=== PATIENT | male | born 1955 | race Caucasian/White ===

== ENCOUNTER 2025-04-19 14:29 | Emergency (ER) | payer MEDICARE, OTHER ==
[~2025-04-19] VITALS: Ht 177.8 cm; Wt 69.1 kg
[~2025-04-19 14:29] MED LIST: AUG875T PO; HYDR-4902 PO; ZOFR4T PO
--- NOTE | 2025-04-19 15:12 | ED.PDOC ---
Musculoskeletal HPI Comments This is a 69 year old male presenting to the ED with chief complaint of left shoulder pain. Patient reports that his left shoulder suddenly started to experience pain with movement around 2 days ago. Patient relays that he is now unable to lift up his arm past his shoulder height due to the pain. Patient states he has history of torn rotator cuffs to bilateral shoulders, but had a previous surgery to fix the left one. Patient notes he has taken Flexeril and Ibuprofen with no relief in pain noted. Denies fevers chills night sweats nausea vomiting redness around the shoulder Numbness/tingling down the arm Denies changes, shortness of breath Chief Complaint: Upper Extremity Time Seen by MD: 15:09 Reviewed Notes: Nurses Notes, Medications, Allergies Allergies: Coded Allergies: Acetaminophen (Verified Allergy, Unknown, 11/28/24) Hydrocodone (Verified Allergy, Unknown, 11/28/24) Home Meds Active Scripts Ondansetron Odt 4MG Tab (ZOFRAN PO) 4 Mg Tb, 4 MG PO TIDP PRN for 5 Days, #15 TAB 0 Refills ODT TAB-DISSOLVE IN MOUTH, THEN SWALLOW Prov:TREVON BULLOCK MD 11/30/24 Hydrocodone-Acetaminophen (Hydrocodone Bitartrate/AC 5-325 mg) 1 Tab Tab, 1 TAB PO TIDP PRN for 5 Days, #15 TAB 0 Refills Prov:TREVON BULLOCK MD 11/30/24 Amoxicillin & Pot Clavulanate (AUGMENTIN TABLET) 875 Mg Tb, 875 MG PO BID for 5 Days, #10 TAB 0 Refills Prov:TREVON BULLOCK MD 11/30/24 Information Source: Patient Mode of Arrival: Ambulatory Location: Left Extremity Location: Shoulder Timing: Days Prehospital treatment: None Severity: Moderate Able to Move Extremity: Yes Pain: Moderate Mechanism: Spontaneous Circumstances: Spontaneous Onset of Symptoms: Spontaneous Symptoms: Pain DVT Risk Factors: NONE Associated signs and symptoms: Shoulder pain Past Medical History PAST MEDICAL HISTORY: Denies Surgical History: Hernia Repair Surgical History (Other): Lt rotator Family History Family History: Reviewed,noncontributory to illness Social History Smoker: Non-Smoker Alcohol: Denies ETOH Use Drugs: Denies Drug Use Lives In: Home Constitutional: denies: chills, diaphoresis, fatigue, fever, malaise, sweats, weakness, others EENTM: denies: blurred vision, double vision, ear bleeding, ear discharge, ear drainage, ear pain, ear ringing, eye pain, eye redness, hearing loss, mouth pain, mouth swelling, nasal discharge, nose bleeding, nose congestion, nose pain, photophobia, tearing, throat pain, throat swelling, voice changes, others Respiratory: denies: cough, hemoptysis, orthopnea, SOB at rest, shortness of breath, SOB with excertion, stridor, wheezing, others Cardiovascular: denies: chest pain, dizzy spells, diaphoresis, Dyspnea on exertion, edema, irregular heart beat, left arm pain, lightheadedness, palpitations, PND, syncope, others Gastrointestinal: denies: abdomen distended, abdominal pain, blood streaked bowels, constipated, diarrhea, dysphagia, difficulty swallowing, hematemesis, melena, nausea, poor appetite, poor fluid intake, rectal bleeding, rectal pain, vomiting, others Genitourinary: denies: burning, dysuria, flank pain, frequency, hematuria, incontinence, penile discharge, penile sore, pain, testicle pain, testicle swelling, urgency, others Neurological: denies: dizziness, fainting, headache, left sided numbness, left sided weakness, numbness, paresthesia, pre-existing deficit, right sided numbness, right sided weakness, seizure, speech problems, tingling, tremors, weakness, others Musculoskeletal: reports: others (Left shoulder pain); denies: back pain, gout, joint pain, joint swelling, muscle pain, muscle stiffness, neck pain Integumetry: denies: bruises, change in color, change in hair/nails, dryness, laceration, lesions, lumps, rash, wounds, others Allergic/Immunocompromised: denies: Difficulty Healing, Frequent Infections, Hives, Itching, others Hematologic/Lymphatic: denies: anemia, blood clots, easy bleeding, easy bruising, swollen glands, others Endocrine: denies: excessive hunger, excessive sweating, excessive thirst, excessive urination, flushing, intolerance to cold, intolerance to heat, unexplained weight gain, unexplained weight loss, others Psychiatric: denies: anxiety, bipolar disorder, depression, hopeless, panic disorder, schizophrenia, sleepless, suicidal, others All Other Systems: Reviewed and Negative Physical Exam General Appearance: No Apparent Distress, Normal HEENT: Normal ENT Inspection, Pharynx Normal, TMs Normal Neck: Full Range of Motion, Non-Tender, Normal, Normal Inspection Respiratory: Chest Non-Tender, Lungs Clear, No Accessory Muscle Use, No Respiratory Distress, Normal Breath Sounds Cardiovascular: No Edema, No JVD, No Murmur, No Gallop, Normal Peripheral Pulses, Regular Rate/Rhythm Breast Exam: Deferred Gastrointestinal: No Organomegaly, Non Tender, No Pulsatile Mass, Normal Bowel Sounds, Soft Genitalia: Deferred Pelvic: Deferred Rectal: Deferred Extremities: No calf tenderness, Normal capillary refill, Normal inspection, Normal range of motion, Non-tender, No pedal edema Musculoskeletal : Apperance: Normal Neurologic: Alert, processor inspector II-XII nml as Tested, No Motor Deficits, Normal Affect, Normal Mood, No Sensory Deficits Cerebellar Function: Normal Reflexes: Normal Skin: Dry, Normal Color, Warm Lymphatic: No Adenopathy Was a procedure done? Was a procedure done?: No Differential Diagnosis EXT Differential Diagnosis: Fracture, Sprain, Dislocation, Contusion, Strain X-Ray, Labs, Meds, VS Vital Signs Date Time Temp Pulse Resp B/P (MAP) Pulse Ox O2 Delivery O2 Flow Rate FiO2 04/19/25 16:03 78 17 97 Room Air 04/19/25 16:03 98.2 87 18 149/87 (107) 97 98.2 04/19/25 14:30 97.7 88 15 153/85 97 97.7 Current Medications Medications (Trade) Dose Ordered Sig/Lisette Route Start Time Stop Time Status Last Admin Methylprednisolone Sodium Succinate (Solu Medrol) 125 mg ONCE ONCE IM 04/19/25 15:45 04/19/25 15:46 DC 04/19/25 15:46 [place] [id number] Ph: [phone] DIAGNOSTIC IMAGING Diagnostic Imaging Report : [id number] Signed PATIENT: REMEDIOS DING ACCT: [id number] UNIT: [id number] : 1955 LOC: ER ROOM / BED: / AGE / SEX: 69 / M ADM STATUS: REG ER SERVICE [id number] ORDERING PHYSICIAN: INEZ PENA NP PROCEDURE(s): LSHD2 - L SHOULDER 2+ VIEW XRAY REASON: R/o fracture and Osteoarthritis ORDER NUMBER(s): [id number], ACCESSION NUMBER(s): [id number] CLINICAL INDICATION: R/o fracture and Osteoarthritis TECHNIQUE: 3 views XY L SHOULDER 2+ VIEW XRAY Comparison: None FINDINGS/IMPRESSION: : No fracture Normal alignment [id number] calcific tendinitis noted adjacent to the humeral head. Calcium deposits only seen on the AP view. IMPRESSION: 1. No fracture No significant degenerative osteoarthritis identified Calcific tendinitis. ATED BY: DOLORES RODRIGUEZ MD DICTATED DATE/TIME: 04/19/251533 SIGNED BY: DOLORES RODRIGUEZ MD SIGNED DATE/TIME: 04/19/251533 CC: X-Ray, Labs, Meds, VS Comment This is a 69 year old male presenting to the ED with chief complaint of left shoulder pain Patient arrives alert and oriented, ABC's intact, afebrile, vital signs stable, saturating well in room air Diagnostic imaging ordered by me and results interpreted by radiology : Lt shoulder XR X-rays ordered, read by radiologist and reviewed by me. Imaging shows no acute findings There are no signs of arterial or nerve damage Recommended heat therapy Reviewed RICE management Recommended range of motion exercises and limit heavy activity for 1 week If no improvement advised patient to return to the emergency department for follow-up. On reevaluation, patient had symptomatic improvement. Patient is stable for discharge at this time. External notes reviewed. Test results and diagnostic imaging interpreted. All diagnostic findings, discharge care, education and instructions provided Follow-up with PCP in 2 to 3 days Patient verbalized understanding and agreed to treatment plan Vital signs stable, afebrile, no acute distress noted Patient ambulatory with strong steady gait Advised to return precautions for any new or worsening symptoms, return to ER immediately for re-evaluation Patient is aware that the purpose of this visit was for an acute medical emergency requiring emergent stabilization. Chronic conditions, including malignancies have not been ruled out. Patient is instructed to follow up with PCP as directed and discharge instructions for continued care and workup. If unable to arrange follow-up, patient is to return to the emergency department for reassessment. Patient (parent or legal guardian if applicable) was given verbal and written discharge instructions and acknowledges understanding. Additional MDM Review of External, Non-ED records: External records reviewed. Discussion with independent historian (EMS, family) history obtained from the patient/parents (if applicable) at bedside Chronic conditions affecting care: None Social determinants of health affecting care: None Patient was given: Solu-Medrol 125mg IM. Tolerated medications with no adverse reaction. Consideration of admission (observation or admission): I considered escalation of care to admission for this patient, however given the reassuring workup, the patient is safe for outpatient management. Discussion with the Radiology: No Time of 1ST Reevaluation: 15:15 Reevaluation 1ST: Improved Patient Education/Counseling: Diagnosis, Treatment Family Education/Counseling: No Family Present Departure 1 Departure Time of Disposition: 15:42 Impression: Primary Impression: Calcific tendinitis of shoulder Qualified Codes: M75.32 - Calcific tendinitis of left shoulder Disposition: 01 HOME / SELF CARE / HOMELESS Condition: Fair Discharged With: Self Critical Care Note Critical Care Time?: No Stability Stability form required: No Heart Score Heart Score: Heart Score Response (Comments) Value History N/A 0 EKG N/A 0 Age N/A 0 Risk Factors N/A 0 Troponin N/A 0 Total 0 I personally scribed for INEZ PENA TAILING HAND ([email or web address]) on 04/19/25 at 15:12. Electronically submitted by Dale Chahal ([email or web address]). I personally scribed for INEZ PENA TAILING HAND ([email or web address]) on 04/19/25 at 15:51. Electronically submitted by Dale Chahal ([email or web address]). INEZ PENA TAILING HAND Apr 19, 2025 15:12
--- NOTE | 2025-04-19 15:36 | DVH ---
CLINICAL INDICATION: R/o fracture and Osteoarthritis TECHNIQUE: 3 views XY L SHOULDER 2+ VIEW XRAY Comparison: None FINDINGS/IMPRESSION: : No fracture Normal alignment [id number] calcific tendinitis noted adjacent to the humeral head. Calcium deposits only seen o n the AP view. IMPRESSION: 1. No fracture No significant degenerative osteoarthritis identified Calcific tendinitis.
[2025-04-19] MEDS: methylPREDNISolone SOD SUCC 125 MG/2 ML VL IM ONE (15:46)
[2025-04-19 16:03] VITALS: BP 149/87; PULSE 78; RESP 17; TEMP 98.2; O2SAT 97
== END 2025-04-19 16:01 | disposition home or self-care (01) ==
LOC: ER 14:29
DX: M75.32 Calcific tendinitis of left shoulder (principal); Z88.5 Allergy status to narcotic agent; Z98.890 Other specified postprocedural states
CPT/HCPCS: 73030; 96372; 99283; J2919

== ENCOUNTER 2025-05-04 09:13 | Outpatient (CLI) | payer OTHER, MEDICARE ==
[2025-05-04 10:11] LABS: Hematocrit 46.6 % (41.0-53.0); Hemoglobin 16.7 g/dL (13.5-17.5); Mean Corpuscular Hemoglobin 29.5 pg (28.0-32.0); Mean Corpuscular Volume 82.4 fL (80.0-100.0); Nucleated Red Blood Cells % 0.0 %
[2025-05-04 10:13] LABS: Urine Protein, UAD Negative (Negative)
[2025-05-04 10:14] LABS: Alanine Aminotransferase 12 U/L (7-40); Albumin 4.3 g/dL (3.2-4.8); Alkaline Phosphatase 62 U/L (46-116); Anion Gap 7 (5-15); BUN/Creatinine Ratio 16.0 (10.0-20.0); Blood Urea Nitrogen 12 mg/dL (9-23); Calcium 8.9 mg/dL (8.7-10.4); Carbon Dioxide 25 mmol/L (20-31); Cholesterol 151 mg/dL (< 200); Potassium 4.2 mmol/L (3.5-5.1); Sodium 142 mmol/L (136-145); Total Protein 6.8 g/dL (5.7-8.2); Triglycerides 89 mg/dL (< 150)
[2025-05-04 10:15] LABS: Bilirubin, Total 0.6 mg/dL (0.2-1.0); Chloride 110 mmol/L (98-107); Glucose 113 mg/dL (74-106); HDL Cholesterol 48 mg/dL (40-59)
[2025-05-04 12:17] LABS: Prostate Specific Antigen 13.38 ng/mL (0.0-4.0)
[2025-05-04 12:21] LABS: Free T4 (Free Thyroxine) 1.26 ng/dL (0.89-1.76)
== END 2025-05-04 17:00 | disposition home or self-care (01) ==
LOC: LAB 09:13
PROVIDERS: ATTEND Internal Medicine
DX: R35.1 Nocturia (principal); R39.12 Poor urinary stream; R13.10 Dysphagia, unspecified; K44.9 Diaphragmatic hernia without obstruction or gangrene; F17.200 Nicotine dependence, unspecified, uncomplicated; Z00.01 Encounter for general adult medical examination with abnormal findings
CPT/HCPCS: 36415; 80053; 80061; 81001; 83036; 84153; 84439; 84443; 85025

== ENCOUNTER 2025-07-23 10:14 | Day surgery (SDC) | payer OTHER ==
[2025-07-21 13:05] LABS: Urine Budding Yeast OCCASIONAL /hpf (None Seen); Urine Protein, UAD Negative (Negative)
[2025-07-21 13:07] LABS: Hematocrit 47.6 % (41.0-53.0); Hemoglobin 16.3 g/dL (13.5-17.5); Mean Corpuscular Hemoglobin 28.6 pg (28.0-32.0); Mean Corpuscular Volume 83.1 fL (80.0-100.0); Nucleated Red Blood Cells % 0.1 %
[2025-07-21 13:21] LABS: INR 1.03 (0.9-1.15); Partial Thromboplastin Time 27.6 SEC (24.5-34.5); Prothrombin Time 10.9 sec (9.3-11.8)
[2025-07-21 13:23] LABS: Alanine Aminotransferase 15 U/L (7-40); Albumin 4.5 g/dL (3.2-4.8); Alkaline Phosphatase 67 U/L (46-116); Anion Gap 5 (5-15); BUN/Creatinine Ratio 16.1 (10.0-20.0); Blood Urea Nitrogen 14 mg/dL (9-23); Calcium 9.3 mg/dL (8.7-10.4); Carbon Dioxide 31 mmol/L (20-31); Chloride 104 mmol/L (98-107); Glucose 86 mg/dL (74-106); Potassium 4.8 mmol/L (3.5-5.1); Sodium 140 mmol/L (136-145); Total Protein 7.0 g/dL (5.7-8.2)
[2025-07-21 13:24] LABS: Bilirubin, Total 0.5 mg/dL (0.2-1.0)
[~2025-07-23] VITALS: Ht 177.8 cm; Wt 67.6 kg
[2025-07-23 12:43] VITALS: PULSE 60; RESP 12; TEMP 97.2; O2SAT 99
[2025-07-23 12:53] VITALS: PULSE 58; RESP 12; O2SAT 99
[2025-07-23 13:26] VITALS: BP 129/88; PULSE 64; RESP 15; O2SAT 97
--- NOTE | 2025-07-23 13:41 | DVHOP2 ---
Operative Report DATE OF OPERATION: 07/23/25 PROCEDURE: Upper Endoscopy biopsy. PREOPERATIVE INDICATION: The patient is a 69 -year-old male undergoing endoscopy for history of dysphagia and weight loss and previous history of Sybil fundoplication POSTOPERATIVE DIAGNOSES: 1. A 1-2 cm sliding-type hiatal hernia with slightly irregular squamocolumnar junction an intact Sybil fundoplication 2. Mild gastritis and moderate duodenitis of the duodenal bulb with duodenal erosions PROCEDURE PERFORMED BY: Linda Jaeger GI NURSE: Crystal SCOPE: Olympus videoendoscope. ASA CLASS: 3 PREOPERATIVE MEDICATIONS: Mac sedation, Dr. Vieyra PROCEDURE IN DETAIL: After obtaining an informed consent, the patient was placed on left lateral decubitus position. The patient was then sedated with the above medications. A bite block was placed between his teeth. The endoscope was then passed through the oropharynx, into the esophagus, and through the stomach and pylorus up to the second and third part of the duodenum. The endoscope was then withdrawn. Second and 3rd part of the duodenal were normal in the duodenal bulb and postbulbar area showed moderate duodenitis with hyperemia and superficial erosions The pre-pyloric area antrum and body showed mild gastritis with some superficial erosions and flecks of old blood. Duodenal and gastric biopsies were obtained On retroflexion the fundus and cardia were normal. The patient had an intact fully effective Sybil fundoplication There was slightly irregular squamocolumnar junction and a small 1-2 cm sliding-type hiatal hernia and GE junction biopsies were obtained The remaining distal and proximal esophagus and oropharynx were unremarkable. There was no stricture or obstruction but only an intact Sybil fundoplication in place The patient tolerated the procedure well without difficulty. COMPLICATIONS : None SPECIMENS: Duodenal biopsies Gastric biopsies GE junction biopsies DISPOSITION: Stable D/C to home PLAN: 1. Await for biopsy result 2. Will place pt on Protonix 40 mg p.o. daily 3. Avoid aspirin NSAIDs, patient states he takes them for his chronic pain issues 4. Resume GI soft diet advance as tolerated 5. Outpatient follow up with me in 4-6 weeks to review results and discuss further management LINDA JAEGER MD Jul 23, 2025 13:41
--- NOTE | 2025-07-23 14:03 | DVHOP2 ---
Operative Report DATE OF OPERATION: 07/23/25 PROCEDURE: Colonoscopy with hot snare polypectomy. PREOPERATIVE INDICATION: The patient is a 69 -year-old male undergoing colonoscopy for colon cancer screening POSTOPERATIVE DIAGNOSES: 1. 5 mm benign-appearing transverse colon polyp was seen and removed by hot snare polypectomy 2. There were four less than 1 cm benign-appearing rectosigmoid polyps that were seen and removed by hot snare polypectomy and the specimens were retrieved 3. Mild to moderate tortuosity and redundancy of the colon otherwise essentially completely normal colonoscopy examination up to the cecum PROCEDURE PERFORMED BY: Linda Jaeger M.D. SCOPE: Olympus videocolonoscope. ASA CLASS: 3 PREOPERATIVE MEDICATIONS: Mac sedation, Dr. Vieyra PROCEDURE IN DETAIL: After obtaining an informed consent, the patient was placed on left lateral decubitus position. He was then sedated with the above medications. A rectal examination was performed that was normal. The colonoscope was then passed through the anus into the rectosigmoid and through the descending, transverse, and ascending colon up to the cecum with visualization of the appendiceal orifice, base of the cecum and the ileocecal valve. The colonoscope was then withdrawn. The distal 5 cm of the terminal ileum were normal The patient had [id number] tortuosity and redundancy of the colon. In the proximal transverse colon there was a 5-6 mm benign-appearing polyp that was seen and removed by hot snare polypectomy There two less than 1 cm benign-appearing sigmoid polyps were seen and removed by hot snare polypectomy There were another two less than 1 cm benign-appearing sigmoid polyps that were seen and removed by hot snare polypectomy On retroflexion and straight on view he had trace to 1+ internal hemorrhoids The patient tolerated the procedure well without difficulty. WITHDRAWAL TIME: 12 minutes QUALITY OF THE PREP: Ware Bowel Prep score: 9. COMPLICATIONS : None SPECIMENS: Transverse colon polyp Rectosigmoid polyps x4 DISPOSITION: Status D/C to home PLAN: 1. Repeat colonoscopy base on biopsy result likely in 3-5 years 2. Resume GI soft diet advance as tolerated 3. Increase fluid and fiber intake 4. Outpatient follow up with me in 4-6 weeks to review results and discuss further management LINDA JAEGER MD Jul 23, 2025 14:03
== END 2025-07-23 13:33 | disposition home or self-care (01) ==
LOC: GI 10:14
PROVIDERS: ATTEND Internal Medicine Gastroenterology
DX: R63.4 Abnormal weight loss (principal); K63.5 Polyp of colon; K29.50 Unspecified chronic gastritis without bleeding; K31.A0 Gastric intestinal metaplasia, unspecified; K29.80 Duodenitis without bleeding; K44.9 Diaphragmatic hernia without obstruction or gangrene; K26.9 Duodenal ulcer, unspecified as acute or chronic, without hemorrhage or perforation; K64.8 Other hemorrhoids; R13.10 Dysphagia, unspecified; G51.0 Bell's palsy; G89.29 Other chronic pain; Z79.899 Other long term (current) drug therapy; Z96.621 Presence of right artificial elbow joint; Z96.612 Presence of left artificial shoulder joint; Z98.890 Other specified postprocedural states; Z82.3 Family history of stroke; Z88.8 Allergy status to other drugs, medicaments and biological substances; Z88.5 Allergy status to narcotic agent
CPT/HCPCS: 36415; 43239; 45385; 80053; 81001; 85025; 85610; 85730; 88305; 88313; 88342; J7030

== ENCOUNTER 2025-08-08 10:00 | Emergency (ER) | payer OTHER ==
[~2025-08-08] VITALS: Ht 177.8 cm; Wt 65.1 kg
[2025-08-08 10:54] VITALS: BP 133/94; PULSE 100; RESP 20; TEMP 98.5; O2SAT 98
--- NOTE | 2025-08-08 11:14 | ED.PDOC ---
History of Present Illness HPI Comments This is a 70 year old male presenting to the ED with chief complaint of flu-like symptoms. Patient reports that he has been experiencing a sore throat with associated left eye drainage, redness, pain, a cough, and nasal congestion for the past week. Patient denies any N/V/D, abdominal pain, chest pain, SOB, dizziness, fever, or chills. Chief Complaint: Flu like Time Seen by MD: 11:13 Reviewed Notes: Nurses Notes, Medications, Allergies Allergies: Coded Allergies: Acetaminophen (Verified Allergy, Unknown, 11/28/24) Hydrocodone (Verified Allergy, Unknown, 11/28/24) Information Source: Patient Mode of Arrival: Ambulatory Severity: Moderate Timing: Days Duration: Since onset Prehospital treatment: None Past Medical History PAST MEDICAL HISTORY: Denies Surgical History: Hernia Repair Family History Family History: Reviewed,noncontributory to illness Social History Smoker: Non-Smoker Alcohol: Denies ETOH Use Drugs: Denies Drug Use Lives In: Home Constitutional: denies: chills, diaphoresis, fatigue, fever, malaise, sweats, weakness, others EENTM: reports: eye pain, eye redness, nose congestion, throat pain; denies: blurred vision, double vision, ear bleeding, ear discharge, ear drainage, ear pain, ear ringing, hearing loss, mouth pain, mouth swelling, nasal discharge, nose bleeding, nose pain, photophobia, tearing, throat swelling, voice changes, others Respiratory: reports: cough; denies: hemoptysis, orthopnea, SOB at rest, shortness of breath, SOB with excertion, stridor, wheezing, others Cardiovascular: denies: chest pain, dizzy spells, diaphoresis, Dyspnea on exertion, edema, irregular heart beat, left arm pain, lightheadedness, palpitations, PND, syncope, others Gastrointestinal: denies: abdomen distended, abdominal pain, blood streaked bowels, constipated, diarrhea, dysphagia, difficulty swallowing, hematemesis, melena, nausea, poor appetite, poor fluid intake, rectal bleeding, rectal pain, vomiting, others Genitourinary: denies: burning, dysuria, flank pain, frequency, hematuria, incontinence, penile discharge, penile sore, pain, testicle pain, testicle swelling, urgency, others Neurological: denies: dizziness, fainting, headache, left sided numbness, left sided weakness, numbness, paresthesia, pre-existing deficit, right sided numbness, right sided weakness, seizure, speech problems, tingling, tremors, weakness, others Musculoskeletal: denies: back pain, gout, joint pain, joint swelling, muscle pain, muscle stiffness, neck pain, others Integumetry: denies: bruises, change in color, change in hair/nails, dryness, laceration, lesions, lumps, rash, wounds, others Allergic/Immunocompromised: denies: Difficulty Healing, Frequent Infections, Hives, Itching, others Hematologic/Lymphatic: denies: anemia, blood clots, easy bleeding, easy bruising, swollen glands, others Endocrine: denies: excessive hunger, excessive sweating, excessive thirst, excessive urination, flushing, intolerance to cold, intolerance to heat, unexplained weight gain, unexplained weight loss, others Psychiatric: denies: anxiety, bipolar disorder, depression, hopeless, panic disorder, schizophrenia, sleepless, suicidal, others All Other Systems: Reviewed and Negative Physical Exam General Appearance: No Apparent Distress, Normal HEENT: Pharyngeal Erythema, Pharynx Normal, TMs Normal, Other (Left injected conjunctiva) Neck: Full Range of Motion, Non-Tender, Normal, Normal Inspection Respiratory: Chest Non-Tender, Lungs Clear, No Accessory Muscle Use, No Respiratory Distress, Normal Breath Sounds Cardiovascular: No Edema, No JVD, No Murmur, No Gallop, Normal Peripheral Pulses, Regular Rate/Rhythm Breast Exam: Deferred Gastrointestinal: No Organomegaly, Non Tender, No Pulsatile Mass, Normal Bowel Sounds, Soft Genitalia: Deferred Pelvic: Deferred Rectal: Deferred Extremities: No calf tenderness, Normal capillary refill, Normal inspection, Normal range of motion, Non-tender, No pedal edema Musculoskeletal : Apperance: Normal Neurologic: Alert, camera mechanic II-XII nml as Tested, No Motor Deficits, Normal Affect, Normal Mood, No Sensory Deficits Cerebellar Function: Normal Reflexes: Normal Skin: Dry, Normal Color, Warm Lymphatic: No Adenopathy Was a procedure done? Was a procedure done?: No Differential Dx Considerations may include: Conjunctivitis, viral syndrome, URI, pharyngitis X-Ray, Labs, Meds, VS Vital Signs Date Time Temp Pulse Resp B/P (MAP) Pulse Ox O2 Delivery O2 Flow Rate FiO2 12/7/25 10:54 98.5 100 20 133/94 (107) 98 98.5 08/08/25 10:02 97.8 99 18 135/98 96 97.8 Current Medications Medications (Trade) Dose Ordered Sig/Lisette Route Start Time Stop Time Status Last Admin Erythromycin 1 applic ONCE ONCE OP 08/08/25 11:00 08/08/25 11:01 DC 08/08/25 11:53 Time of 1ST Reevaluation: 12:12 Reevaluation 1ST: Unchanged Patient Education/Counseling: Diagnosis, Treatment Family Education/Counseling: No Family Present SEPSIS Sepsis Screen Date sepsis recognized/suspect: Aug 08, 2025 Time Sepsis recognized/suspect: 100 Recent Procedure: No On Antibiotic Therapy: No Respiratory Rate >20: No Heart Rate >90: Yes Temp<36 C (96.8 F) or >38.3 C: No SBP <90 or MAP <65 mmHG: No New Acute Mental Status Change: No Is the patient on CPAP, BIPAP,: No Vital Signs Date Time Temp Pulse Resp B/P (MAP) Pulse Ox O2 Delivery O2 Flow Rate FiO2 08/08/25 10:54 98.5 100 20 133/94 (107) 98 98.5 08/08/25 10:02 97.8 99 18 135/98 96 97.8 Medications Medications Dose Ordered Sig/Lisette Route Start Time Stop Time Status Last Admin Dose Admin Erythromycin 1 applic ONCE ONCE OP 08/08/25 11:00 08/08/25 11:01 DC 08/08/25 11:53 Departure 1 Departure Time of Disposition: 12:12 (Patient likely with a bacterial conjunctivitis. We will discharge patient home with outpatient follow up) Impression: Primary Impression: Bacterial conjunctivitis of left eye Disposition: HOME / SELF CARE / HOMELESS Condition: Stable Additional Instructions: You have an infection. You were prescribed antibiotics. Please use as directed. It is important to stay well rested and well hydrated. You can take Tylenol and Motrin as needed for pain and fever. For a sore throat you can drink warm tea with honey. You can take [id number]-ayn-[id number] pseudoephedrine for nasal congestion. He should follow up with your regular doctor within 1 week to ensure you are doing better. If your symptoms worsen or you have any other concerns please return to the emergency room. e-Prescriptions Erythromycin (Erythromycin) 5 Mg/Gm Oin 1 MG OP QID for 7 Days, #1 OIN Prov: NICA MARISCAL MD 08/08/25 Discharged With: Self Critical Care Note Critical Care Time?: No Stability Stability form required: No Heart Score Heart Score: Heart Score Response (Comments) Value History N/A 0 EKG N/A 0 Age N/A 0 Risk Factors N/A 0 Troponin N/A 0 Total 0 I personally scribed for NICA MARISCAL MD ([email or web address]) on 08/08/25 at 11:14. Electronically submitted by Dale Chahal ([email or web address]). NICA MARISCAL MD Aug 08, 2025 11:14
[2025-08-08] MEDS: ERYTHROMY OPTH OINT 5mg/gm 1gm or 3.5gm tube OP ONE (11:53)
[2025-08-08] MEDS ORDERED: ERY05OO OP (12:13)
== END 2025-08-08 12:34 | disposition home or self-care (01) ==
LOC: ER 10:00
DX: H10.89 Other conjunctivitis (principal); Z88.5 Allergy status to narcotic agent; Z98.890 Other specified postprocedural states